=== PATIENT | female | born 1990 | race Two or more races ===

== ENCOUNTER 2025-02-02 23:37 | Emergency (ER) | payer MEDICAID ==
[~2025-02-02] VITALS: Ht 154.9 cm; Wt 80.4 kg
[2025-02-03 00:27] LABS: Urine Protein, UAD Negative (Negative)
[2025-02-03] MEDS ORDERED: ACET650T12 PO (00:52)
[2025-02-03] MEDS ORDERED: KETO10TA PO (00:52)
--- NOTE | 2025-02-03 00:52 | ED.PDOC ---
History of Present Illness HPI Comments 34-year-old female who presents with chief complaint of nonradiating, right- sided flank pain and burning dysuria. Patient endorses on being referred to ED from local urgent care clinic after being evaluated for symptoms, earlier, today, and recovering from a UTI. Pain is a 9/10 in severity, with no relief or improvement with [id number] ibuprofen or Tylenol medication use (last oral intake at 2000 -2100, last night). Patient reports complaining a 7 day amoxicillin antibiotic course, yesterday. Patient denies having any additional urinary symptoms, fever, chills, lightheadedness, weakness, nausea, vomiting or further associated symptoms. REVIEW OF SYSTEMS: General: No fever, no chills, or fatigue HEENT: No sore throat, no earache, no congestion, no neck pain. Cardiac: No chest pain. No palpitations. Lungs: No shortness of breath, no cough. GI: No nausea, no vomiting, no diarrhea, no constipation, no abdominal pain : Right flank pain, dysuria, frequency, or urgency. No hematuria. Musculoskeletal: No joint pain , no joint swelling, no extremity edema. Skin: No rash, no itching. Neuro: No headache, no dizziness, no weakness PHYSICAL EXAM: General: Awake, alert and oriented. No acute distress. Skin: Skin in warm, dry and intact. Appropriate color for ethnicity. HEENT: The head is normocephalic and atraumatic. Conjunctivae are clear without exudates or hemorrhage. Sclera is non-icteric. EOM are intact. No signs of nystagmus. Eyelids are normal in appearance without swelling or lesions. Oral mucosa is pink and moist Neck: The neck is supple with normal range of motion. No JVD. Cardiac: Heart rate and rhythm are normal. No murmurs, gallops, or rubs are auscultated. Respiratory: No signs of respiratory distress. Lung sounds are clear in all lo bes bilaterally without rales, rhonchi, or wheezes. Abdominal: No CVA or flank pain tenderness. Abdomen is soft, non-tender without distention, guarding or rigidity. Bowel sounds are present and normoactive in all four quadrants. Extremities: Upper and lower extremities are atraumatic in appearance without deformity or edema. Neurological: The patient is awake, alert and oriented to person, place, and time with normal speech. Speech is clear. There is no facial asymmetry. Psychiatric: Appropriate mood and affect. Good judgement and insight. Chief Complaint: Flank Pain Time Seen by MD: 23:44 Reviewed Notes: Nurses Notes, Medications, Allergies Allergies: Coded Allergies: NO KNOWN ALLERGIES (Unverified , 02/02/25) Home Meds Active Scripts Ketorolac Tromethamine (Ketorolac Tromethamine) 10 Mg Tab, 1 TAB PO TID, #15 TAB Prov:CARLO GONZALEZ MD 02/03/25 Acetaminophen (Acetaminophen Er) 650 Mg Tab, 650 MG PO TIDPRN PRN for 5 Days, #15 TAB Prov:CARLO GONZALEZ MD 02/03/25 Information Source: Patient Mode of Arrival: Ambulatory Severity: Moderate Timing: Days Duration: Since onset Prehospital treatment: None Past Medical History PAST MEDICAL HISTORY: UTI'S Surgical History: Denies all surgeries 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 Was a procedure done?: No Differential Dx Considerations may include: Differential diagnosis includes but is not limited to pyelonephritis, nephrolithiasis, AAA, musculoskeletal pain, urinary tract infection, cholecystitis, appendicitis, other X-Ray, Labs, Meds, VS Vital Signs Date Time Temp Pulse Resp B/P (MAP) Pulse Ox O2 Delivery O2 Flow Rate FiO2 02/03/25 01:22 98.2 104 18 96/57 (70) 96 98.2 02/02/25 23:38 99.1 113 18 100/73 95 99.1 Lab Test 02/02/25 22:20 Range/Units Urine Color Colorless Yellow Urine Clarity Clear Clear Urine pH 6.5 5.0-9.0 Urine Specific [place] 1.002 1.001-1.035 Urine Protein Negative Negative Urine Ketones Negative Negative Urine Blood Negative Negative /uL Urine Nitrite Negative Negative Urine Bilirubin Negative Negative Urine Urobilinogen Normal Negative mg/dL Urine Leukocyte Esterase 3+ Negative /uL Urine RBC None seen 0 - 4 /hpf Urine Microscopic WBC 5 0-5 /HPF Urine Squamous Epithelial Cells None seen <5 /hpf Urine Bacteria Few H None Seen /hpf Urine Glucose Normal Normal mg/dL Current Medications Medications (Trade) Dose Ordered Sig/Aracely Route Start Time Stop Time Status Last Admin Ketorolac Tromethamine (Toradol Injection) 30 mg ONCE ONCE IM 02/03/25 00:00 02/03/25 00:01 DC 02/03/25 01:32 Tramadol HCl (Ultram) 50 mg ONCE ONCE PO 02/03/25 00:00 02/03/25 00:01 DC 02/03/25 01:33 Time of 1ST Reevaluation: 00:14 Reevaluation 1ST: Unchanged Patient Education/Counseling: Need For Follow Up Family Education/Counseling: No Family Present SEPSIS Sepsis Screen Date sepsis recognized/suspect: Feb 02, 2025 Time Sepsis recognized/suspect: 2337 Recent Procedure: No On Antibiotic Therapy: No Respiratory Rate >20: No Heart Rate >90: No Temp<36 C (96.8 F) or >38.3 C: No SBP <90 or MAP <65 mmHG: No New Acute Mental Status Change: No Is the patient on CPAP, BIPAP,: No Vital Signs Date Time Temp Pulse Resp B/P (MAP) Pulse Ox O2 Delivery O2 Flow Rate FiO2 02/03/25 01:22 98.2 104 18 96/57 (70) 96 98.2 02/02/25 23:38 99.1 113 18 100/73 95 99.1 Medications Medications Dose Ordered Sig/Aracely Route Start Time Stop Time Status Last Admin Dose Admin Ketorolac Tromethamine 30 mg ONCE ONCE IM 02/03/25 00:00 02/03/25 00:01 DC 02/03/25 01:32 Tramadol HCl 50 mg ONCE ONCE PO 02/03/25 00:00 02/03/25 00:01 DC 02/03/25 01:33 Departure 1 Departure Time of Disposition: 00:50 Impression: Primary Impression: Flank pain Disposition: 01 HOME / SELF CARE / HOMELESS Condition: Stable Additional Instructions: ED DISCHARGE INSTRUCTIONS Instructions: Please read all instructions provided in this packet carefully. Although you have been discharged from the Emergency Department, this does not mean that you have a "clean bill of health". No definitive diagnosis for your symptoms has been made today. It is possible that you are in the process of developing a serious illness. This is why you must return to the ED without fail if any new or worsening symptoms (especially if your symptoms include chest pain, trouble breathing, abdominal pain, fever, headache, confusion, trouble seeing, or trouble walking) It is also very important that you see a primary care provider (PCP) within the next 1-3 days to follow up. If you are unable to get an appointment, return to the ED for re-evaluation. Abdominal Pain: Care Instructions Overview Abdominal pain has many possible causes. Some aren't serious and get better on their own in a few days. Others need more testing and treatment. If your pain continues or gets worse, you need to be rechecked and may need more tests to find out what is wrong. You may need surgery to correct the problem. Don't ignore new symptoms, such as fever, nausea and vomiting, urination problems, pain that gets worse, and dizziness. These may be signs of a more serious problem. If you are not getting better, you may need more tests or treatment. The doctor has checked you carefully, but problems can develop later. If you notice any problems or new symptoms, get medical treatment right away. Follow-up care is a [place] part of your treatment and safety. Be sure to make and go to all appointments, and call your doctor if you are having problems. It's also a good idea to know your test results and keep a list of the medicines you take. How can you care for yourself at home? Rest until you feel better. To prevent dehydration, drink plenty of fluids. Choose water and other clear liquids until you feel better. If you have kidney, heart, or liver disease and have to limit fluids, talk with your doctor before you increase the amount of f luids you drink. When you feel like eating, start with small amounts. Do not have alcohol, caffeine, or spicy, hot, or high-fat foods for a day or two. Avoid anti-inflammatory medicines such as aspirin, ibuprofen (Advil, Motrin), and naproxen (Aleve). These can cause stomach upset. Talk to your doctor if you take daily aspirin for another health problem. When should you call for help? Call 911 anytime you think you may need emergency care. For example, call if: You passed out (lost consciousness). You pass maroon or very bloody stools. You vomit blood or what looks like coffee grounds. You have severe belly pain. Call your doctor now or seek immediate medical care if: Your pain gets worse, especially if it becomes focused in one area of your belly. You have a new or higher fever. Your stools are black and look like tar, or they have streaks of blood. You have unexpected vaginal bleeding. You have symptoms of a urinary tract infection. These may include: Pain when you urinate. Urinating more often than usual. Blood in your urine. You are dizzy or lightheaded, or you feel like you may faint. Watch closely for changes in your health, and be sure to contact your doctor if: You are not getting better as expected. Credits for Abdominal Pain: Care Instructions Current as of: April 10, 2023 Author: [employer] Staff Clinical Review Board All [employer] education is reviewed by a team that includes physicians, nurses, advanced practitioners, registered dieticians, and other healthcare professionals. e-Prescriptions Ketorolac Tromethamine (Ketorolac Tromethamine) 10 Mg Tab 1 TAB PO TID, #15 TAB Prov: CARLO GONZALEZ MD 02/03/25 Acetaminophen (Acetaminophen Er) 650 Mg Tab 650 MG PO TIDPRN PRN for 5 Days, #15 TAB Prov: CARLO GONZALEZ MD 02/03/25 Comments MDM: 34-year-old female with a right flank pain. There is no UTI on urinalysis. There was no blood on urinalysis, do not suspect kidney stone. Patient well-appearing, nontoxic. Advised prompt follow-up with PCP, return to the ED with any new, worsening or concerning symptoms. Extensive evaluation was performed in attempt to identify or rule out: (See differential diagnosis section) The following tests were ordered, and results were reviewed by me and discussed with patient: (See diagnostic results section) Decision regarding hospitalization or escalation of hospital level of care: Risks and benefits of admission for further treatment of patient's condition was considered however due to patient's stable condition patient will be discharged to follow up closely or return to care for worsening of condition or inability to follow up. Critical Care Note Critical Care Time?: No Stability Stability form required: No Heart Score Heart Score: Heart Score Response (Comments) Value History N/A 0 EKG N/A 0 Age N/A 0 Risk Factors N/A 0 Troponin N/A 0 Total 0 I personally scribed for CARLO GONZALEZ MD ([email or web address]) on 02/03/25 at 02:46. Electronically submitted by Sarmad Mcbride ([email or web address]). CARLO GONZALEZ MD Feb 03, 2025 00:52
[2025-02-03 01:22] VITALS: BP 96/57; PULSE 104; RESP 18; TEMP 98.2; O2SAT 96
[2025-02-03] MEDS: ACETAMINOPHEN 325 MG TAB PO ONE (01:29)
[2025-02-03] MEDS: KETOROLAC TROMETH 30 MG/ML 1ML VIAL IM ONE (01:32)
== END 2025-02-03 02:58 | disposition home or self-care (01) ==
LOC: ER 23:37
DX: Z87.440 Personal history of urinary (tract) infections (principal)
CPT/HCPCS: 81001; 96372; 99283; J1885